=== PATIENT | female | born 1955 | race Caucasian/White ===

== ENCOUNTER 2023-08-13 06:30 | Day surgery (SDC) | payer OTHER ==
[~2023-08-13 06:30] MED LIST: Midazolam 1 MG/ML 2 ML SDV ONE; Propofol 200 MG/20 ML SDV ONE; Sodium Chloride 0.9% 10 ML Syringe FLUSH PRN; Sodium Chloride 0.9% 10 ML Syringe FLUSH SCH; ceFAZolin 2 GM Vial ONE; fentaNYL 100 MCG/2 ML SDV ONE
[2023-08-13] MEDS: Lactated Ringers 1,000 ML IV SCH (06:45)
[2023-08-13] MEDS: Pregabalin 25 MG Cap PO ONE (06:53)
[2023-08-13] MEDS: Acetaminophen 325 MG Tab PO ONE (06:53)
[2023-08-13] MEDS: oxyCODONE ER 10 MG TAB.ER PO ONE (06:53)
[2023-08-13 07:18] LABS: INR 0.93
[2023-08-13 07:19] LABS: PTT,PARTIAL THROMBOPLSTIN TIME 23.9 SECONDS (21.7-31.4)
[2023-08-13] MEDS ORDERED: ePHEDrine 50 MG/ML SDV ONE (08:00)
[2023-08-13] MEDS ORDERED: Dexamethasone 4 MG/ML 5 ML MDV ONE (08:14)
[2023-08-13] MEDS ORDERED: Ondansetron 4 MG/2 ML SDV ONE (08:14)
[2023-08-13] MEDS ORDERED: HYDROmorphone 0.5 MG/0.5 ML Syringe IVPUSH PRN (08:40)
[2023-08-13] MEDS ORDERED: fentaNYL 100 MCG/2 ML SDV IVPUSH PRN (08:40)
[2023-08-13] MEDS ORDERED: Ondansetron 4 MG/2 ML SDV IVPUSH PRN (08:40)
[2023-08-13] MEDS ORDERED: Lidocaine 1% 2 ML ONE (09:04)
[2023-08-13] MEDS: Vancomycin 1 GM SDV ONE (09:09)
[2023-08-13] MEDS: Morphine 8 MG, EPINEPHrine 0.3 MG, Cefuroxime 750 MG, Ketorolac 30 MG, Sodium Chloride ... PRN (09:09)
[2023-08-13] MEDS: Tranexamic Acid 1,000 MG/10 ML Vial ONE (09:09)
[2023-08-13] MEDS ORDERED: Lactated Ringers 1,000 ML ONE (09:19)
[2023-08-13] MEDS ORDERED: Ketorolac 30 MG/ML SDV ONE (09:45)
[2023-08-13] MEDS ORDERED: oxyCODONE 5 MG Tab PO PRN (10:22)
== END 2023-08-13 14:55 | disposition home or self-care (01) ==
LOC: JD.SDS 06:30
PROVIDERS: ATTEND Orthopaedic Surgery
DX: M16.12 Unilateral primary osteoarthritis, left hip (principal); Z88.0 Allergy status to penicillin; Z79.899 Other long term (current) drug therapy
CPT/HCPCS: 0055T; 27130; 36415; 73501; 85610; 85730; 86850; 86900; 86901; 97110; 97116; 97161; A9270; C1713; C1776; J0171; J0690; J0697; J1100; J1885; J2250; J2270; J2405; J2704; J3370; J7030; J7120; 01214; J3010; J3490

== ENCOUNTER 2024-03-19 07:46 | Day surgery (SDC) | payer MEDICARE, OTHER ==
[~2024-03-19 07:46] MED LIST changes: +Lactated Ringers 1,000 ML ONE; +Ondansetron 4 MG/2 ML SDV ONE; -fentaNYL 100 MCG/2 ML SDV ONE
[2024-03-19] MEDS: Lactated Ringers 1,000 ML IV SCH (08:20)
[2024-03-19] MEDS: oxyCODONE ER 10 MG TAB.ER PO ONE (08:24)
[2024-03-19] MEDS: Pregabalin 25 MG Cap PO ONE (08:24)
[2024-03-19] MEDS: Acetaminophen 325 MG Tab PO ONE (08:24)
[2024-03-19] MEDS ORDERED: Lidocaine 1% 4 ML ONE (09:46)
[2024-03-19] MEDS ORDERED: Lidocaine 1% PF 2 ML SDV ONE ×2 (09:46)
[2024-03-19] MEDS ORDERED: ePHEDrine 50 MG/ML SDV ONE (10:02)
[2024-03-19] MEDS ORDERED: Ondansetron 4 MG/2 ML SDV IVPUSH PRN (10:09)
[2024-03-19] MEDS ORDERED: fentaNYL 100 MCG/2 ML SDV IVPUSH PRN (10:09)
[2024-03-19] MEDS ORDERED: HYDROmorphone 0.5 MG/0.5 ML Syringe IVPUSH PRN (10:09)
[2024-03-19] MEDS ORDERED: Propofol 200 MG/20 ML SDV ONE (10:28)
[2024-03-19] MEDS: Morphine 8 MG, EPINEPHrine 0.3 MG, Cefuroxime 750 MG, Ketorolac 30 MG, Sodium Chloride ... PRN (10:57)
[2024-03-19] MEDS: Vancomycin 1 GM SDV ONE (11:04)
[2024-03-19] MEDS: Tranexamic Acid 1,000 MG/10 ML Vial ONE (11:04)
[2024-03-19] MEDS: oxyCODONE 5 MG Tab PO PRN (13:30)
== END 2024-03-19 14:45 | disposition home or self-care (01) ==
LOC: JD.SDS 07:46
PROVIDERS: ATTEND Orthopaedic Surgery
DX: M16.11 Unilateral primary osteoarthritis, right hip (principal); I10 Essential (primary) hypertension; E78.00 Pure hypercholesterolemia, unspecified; E03.9 Hypothyroidism, unspecified; I25.10 Atherosclerotic heart disease of native coronary artery without angina pectoris; Z79.890 Hormone replacement therapy; Z79.899 Other long term (current) drug therapy
CPT/HCPCS: 0055T; 27130; 36415; 73501; 86850; 86900; 86901; 97110; 97116; 97161; C1713; C1776; J0171; J0690; J0697; J1885; J2250; J2270; J2405; J2704; J3370; J7120; 01214; A9270-GY; J3490